=== PATIENT | male | born 1985 | race Caucasian/White ===

== ENCOUNTER 2016-12-23 07:07 | Observation (INO) | payer OTHER ==
[2016-12-23] MEDS ORDERED: NORMAL SALINE 1000 ML 1,000 ML IV ONE (07:37)
--- NOTE | 2016-12-23 07:37 | ER Document Report ---
ED GI/ - General Chief Complaint: Abdominal Pain Stated Complaint: ABDOMINAL PAIN Time Seen by Provider: 12/23/16 07:28 Mode of Arrival: Ambulatory Information source: Patient Notes: Right lower quadrant abdominal pain since . It is progressively gotten worse and unable to stand up straight due to the pain. He still has his appendix. He drank some alcohol last night but he did not think this was associated. There is no flank pain or testicle pain. TRAVEL OUTSIDE OF THE [place] IN LAST 30 DAYS: No - Related Data Allergies/Adverse Reactions: No Known Allergies Allergy (Unverified 12/23/16 07:19) Home Medications: Current Home Medications No Home Medications 12/23/16 [History] Past Medical History - General Information source: Patient - Social History Smoking Status: Current Every Day Smoker Frequency of alcohol use: 3-4 times a week Drug Abuse: None Lives with: Alone Family History: Reviewed & Not Pertinent Patient has suicidal ideation: No Patient has homicidal ideation: No - Medical History Medical History: Negative Renal/ Medical History: Denies: Hx Peritoneal Dialysis Surgical Hx: Negative Review of Systems - Review of Systems Constitutional: No symptoms reported EENT: No symptoms reported Cardiovascular: No symptoms reported Respiratory: No symptoms reported Gastrointestinal: See HPI Genitourinary: No symptoms reported Male Genitourinary: No symptoms reported Musculoskeletal: No symptoms reported Skin: No symptoms reported Hematologic/Lymphatic: No symptoms reported Neurological/Psychological: No symptoms reported Physical Exam - Vital signs Vitals: Temp Pulse Resp BP Pulse Ox 99.3 F 105 H 18 119/72 98 12/23/16 07:18 12/23/16 07:18 12/23/16 07:18 12/23/16 07:18 12/23/16 07:18 Interpretation: Normal - General General appearance: Appears well, Alert - HEENT Head: Normocephalic, Atraumatic Eyes: Normal Conjunctiva: Normal Pupils: PERRL Mucous membranes: Normal Pharynx: Normal Neck: Supple. No: Lymphadenopathy - Respiratory Respiratory status: No respiratory distress Chest status: Nontender Breath sounds: Normal Chest palpation: Normal - Cardiovascular Rhythm: Regular Heart sounds: Normal auscultation Murmur: No - Abdominal Inspection: Normal Distension: No distension Bowel sounds: Normal Tenderness: Tender, McBurney's point - Point tender Organomegaly: No organomegaly. No: Hepatomegaly, Splenomegaly - Back Back: Normal, Nontender. No: CVA tenderness - Extremities General upper extremity: Normal inspection, Nontender, Normal color, Normal ROM , Normal temperature General lower extremity: Normal inspection, Nontender, Normal color, Normal ROM , Normal temperature, Normal weight bearing. No: Nandini's sign - Neurological Neuro grossly intact: Yes Cognition: Normal Orientation: AAOx4 [place] Coma Scale Eye Opening: Spontaneous [place] Coma Scale Verbal: Oriented [place] Coma Scale Motor: Obeys Commands [place] Coma Scale Total: 15 Speech: Normal Motor strength normal: LUE, RUE, LLE, RLE Sensory: Normal - Psychological Associated symptoms: Normal affect, Normal mood - Skin Skin Temperature: Warm Skin Moisture: Dry Skin Color: Normal Skin irregularity: negative: Rash Course - Re-evaluation Re-evalutation: 12/23/16 08:[address] Silva is to see the patient his white count is 14.4 with a left shift. Temperature 99.3. He was point tender at McBurney's I do not feel that he needs a CT scan to sit highly suspect appendicitis and Dr. Obrien will come and see the patient. 12/23/16 08:22 Dr. Obrien believes he is appendicitis but wants me to add a urine drug screen because the patient admitted to him that he Adderall and methadone a few days ago in [place]. 12/23/16 09:05 Patient has multiple concerns about going to surgery and Dr. Obrien will call me back patient is not signed the consent. He is still most tender at McBurney' s point. Pt wants to know if he is going to be intubated, could there be a possibility of this not being appendicitis. I discussed CT option with pt. if he wanted to know for sure, antibiotics, but warned him of the risks of rupture appendix etc. 12/23/16 09:37 Patient has decided to the surgery so he signed his consent form. - Vital Signs Vital signs: Temp Pulse Resp BP Pulse Ox 99.3 F 112 H 20 119/72 98 12/23/16 07:19 12/23/16 07:19 12/23/16 07:25 12/23/16 07:19 12/23/16 07:19 - Laboratory Result Diagrams: 12/23/16 07:45 12/23/16 07:45 Laboratory results interpreted by me: 12/23/16 07:45 WBC 14.4 H Seg Neutrophils % 84.9 H Lymphocytes % 6.8 L Absolute Neutrophils 12.2 H Discharge - Discharge Clinical Impression: Acute abdominal pain in right lower quadrant Condition: Stable Disposition: ADMITTED INPATIENT Admitting Provider: Surgicalist Unit Admitted: OR
[2016-12-23] MEDS ORDERED: ONDANSETRON HCL INJ/PF 4 MG/2 ML SDV ONE (07:59)
[2016-12-23] MEDS ORDERED: ROCURONIUM BROMIDE INJ 50 MG/5 ML VIAL IV ONE (07:59)
[2016-12-23] MEDS ORDERED: GLYCOPYRROLATE INJ 0.4 MG/2 ML VIAL ONE (07:59)
[2016-12-23] MEDS ORDERED: LIDOCAINE 2% INJ-PF (20 MG/ML) 10 ML AMPUL ONE (07:59)
[2016-12-23] MEDS ORDERED: SUCCINYLCHOLINE CHLORIDE INJ 200 MG/10 ML VIAL ONE (07:59)
[2016-12-23] MEDS ORDERED: DEXAMETHASONE SOD PHOSPHATE INJ 4 MG/1 ML VIAL ONE (07:59)
[2016-12-23] MEDS ORDERED: METOCLOPRAMIDE HCL INJ/PF 10 MG/2 ML SDV ONE (07:59)
[2016-12-23 08:01] LABS: ABSOLUTE MONOCYTES (AUTO) 1.1 10^3/uL (0.1-1.4); ABSOLUTE NEUT (AUTO) 12.2 10^3/uL (1.7-8.2); BASOPHILS % (AUTO) 0.3 % (0-2); EOSINOPHILS % (AUTO) 0.2 % (0-6); HEMATOCRIT 42.9 % (37.9-51.0); HEMOGLOBIN 14.9 g/dL (13.5-17.0); HGB HCT DIFFERENCE 1.8; LYMPHOCYTES % (AUTO) 6.8 % (13-45); MEAN CORPUSCULAR HEMOGLOBIN 31.3 pg (27.0-33.4); MEAN CORPUSCULAR HGB CONC 34.7 g/dL (32.0-36.0); MEAN CORPUSCULAR VOLUME 90 fl (80-97); MONOCYTES % (AUTO) 7.8 % (3-13); RED BLOOD COUNT 4.77 10^6/uL (4.35-5.55); RED CELL DISTRIBUTION WIDTH 13.1 % (11.5-14.0); SEGMENTED NEUTROPHILS % (AUTO) 84.9 % (42-78); WHITE BLOOD COUNT 14.4 10^3/uL (4.0-10.5)
[2016-12-23] MEDS ORDERED: MORPHINE SULFATE 10 MG/ML INJ IV ONE (08:21)
[2016-12-23] MEDS ORDERED: ONDANSETRON HCL INJ/PF 4 MG/2 ML SDV IV ONE (08:22)
[2016-12-23 08:26] LABS: ALANINE AMINOTRANSFERASE 35 U/L (21-72); ALBUMIN 4.8 g/dL (3.5-5.0); ALKALINE PHOSPHATASE 88 U/L (38-126); ANION GAP 14 (5-19); ASPARTATE AMINO TRANSFERASE 20 U/L (17-59); BILIRUBIN,DIRECT 0.4 mg/dL (0.0-0.4); BLOOD UREA NITROGEN 13 mg/dL (7-20); CALCIUM 9.6 mg/dL (8.4-10.2); CARBON DIOXIDE 25 mmol/L (22-30); CHLORIDE 102 mmol/L (98-107); CREATININE RESULT 0.89 mg/dL (0.52-1.25); GLUCOSE 102 mg/dL (75-110); LIPASE 79.5 U/L (23-300); POTASSIUM 3.9 mmol/L (3.6-5.0); SODIUM 141.2 mmol/L (137-145)
[2016-12-23] MEDS ORDERED: DEXTROSE 5%-LACTATED RINGERS 1,000 ML IV PRN (08:40)
--- NOTE | 2016-12-23 08:51 | PDOC H&P ---
History of Present Illness Patient complains of: Abdominal pain History of Present Illness: ALEXANDRA JANE is a 31 year old male who was brought to [facility] emergency department complaining of acute onset abdominal pain approximately 8 PM last night. He reports he had a few drinks of alcohol yesterday then developed abdominal pain periumbilical then or to the right side. He had a few rice cakes at 3:00 this morning without symptomatic relief. He was brought by ground rescue to the ER where he was evaluated and found to have significant right lower quadrant tenderness. White blood cell count elevated to 14,000 with a left shift. The patient was felt to be suffering from acute appendicitis, surgery was consulted. 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 He states he has been doing this sort of thing for some time. Patient denies history of trauma, previous abdominal problems. Last bowel movement was yesterday, normal. Past Medical History Medical History: None Past Surgical History Past Surgical History: Reports: None Social History Smoking Status: Current Some Day Smoker Hx Recreational Drug Use: Yes - patient reports participating in medical testing Family History Parental Family History Reviewed: Yes Children Family History Reviewed: Yes Sibling(s) Family History Reviewed.: Yes Medication/Allergy Home Medications: No Home Medications 12/23/16 Allergies/Adverse Reactions: No Known Allergies Allergy (Unverified 12/23/16 07:19) Review of Systems Constitutional: ABSENT: chills, fever(s), headache(s), weight gain, weight loss Eyes: ABSENT: visual disturbances Ears: ABSENT: hearing changes Cardiovascular: ABSENT: chest pain, dyspnea on exertion, edema, orthropnea, palpitations Respiratory: ABSENT: cough, hemoptysis Gastrointestinal: PRESENT: as per HPI Genitourinary: PRESENT: other - States he cannot Pee Integumentary: ABSENT: rash, wounds Neurological: ABSENT: abnormal gait, abnormal speech, confusion, dizziness, focal weakness, syncope Psychiatric: ABSENT: anxiety, depression, homidical ideation, suicidal ideation Endocrine: ABSENT: cold intolerance, heat intolerance, polydipsia, polyuria Hematologic/Lymphatic: ABSENT: easy bleeding, easy bruising Physical Exam Vital Signs: Temp Pulse Resp BP Pulse Ox 99.3 F 112 H 20 119/72 98 12/23/16 07:19 12/23/16 07:19 12/23/16 07:25 12/23/16 07:19 12/23/16 07:19 Intake & Output 12/22/16 12/23/16 12/24/16 06:59 06:59 06:59 Intake Total 1000 Balance 1000 Weight 78.8 kg General appearance: PRESENT: mild distress Head exam: PRESENT: normocephalic Eye exam: PRESENT: EOMI Mouth exam: PRESENT: moist Respiratory exam: PRESENT: clear to auscultation bean Cardiovascular exam: PRESENT: RRR Pulses: PRESENT: normal carotid pulses, normal radial pulses GI/Abdominal exam: PRESENT: other - Right sided abdominal tenderness above McBurney's point with guarding. Gentrourinary exam: PRESENT: other - Testes descended bilaterally, penis circumcised. Neurological exam: PRESENT: oriented to time, oriented to situation Psychiatric exam: PRESENT: agitated Skin exam: PRESENT: dry Results Laboratory Results: 12/23/16 07:45 12/23/16 07:45 12/23/16 12/23/16 07:45 07:45 WBC 14.4 H RBC 4.77 Hgb 14.9 Hct 42.9 MCV 90 MCH 31.3 MCHC 34.7 RDW 13.1 Plt Count 207 Seg Neutrophils % 84.9 H Lymphocytes % 6.8 L Monocytes % 7.8 Eosinophils % 0.2 Basophils % 0.3 Absolute Neutrophils 12.2 H Absolute Lymphocytes 1.0 Absolute Monocytes 1.1 Absolute Eosinophils 0.0 Absolute Basophils 0.0 Sodium 141.2 Potassium 3.9 Chloride 102 Carbon Dioxide 25 Anion Gap 14 BUN 13 Creatinine 0.89 Est GFR ( Amer) > 60 Est GFR (Non-Af Amer) > 60 Glucose 102 Calcium 9.6 Total Bilirubin 1.0 AST 20 ALT 35 Alkaline Phosphatase 88 Total Protein 8.0 Albumin 4.8 Lipase 79.5 Assessment & Plan - Diagnosis (1) Acute abdominal pain in right lower quadrant Is this a current diagnosis for this admission?: YesPlan: 1. Patient's history, clinical examination, and laboratory findings are consistent with acute appendicitis. Was explained to the patient. I have recommended interval laparoscopic, possible open appendectomy. Patient appears very apprehensive. We will start IV fluids, IV antibiotics, and the plan again with the patient in the near future. (2) Substance use disorder Is this a current diagnosis for this admission?: YesPlan: 1. The patient's self-reported history of Adderall and methadone use is confusing. We will seek to extract additional history, as well as check his urine toxicology screen - Time Time Spent: 30 to 50 Minutes Critical Time spent with patient: Less than 15 minutes Medications reviewed and adjusted accordingly: Yes Anticipated discharge: Home - Inpatient Certification Based on my medical assessment, after consideration of the patient's comorbidities, presenting symptoms, or acuity I expect that the services needed warrant INPATIENT care.: Yes I certify that my determination is in accordance with my understanding of Medicare's requirements for reasonable and necessary INPATIENT services [42 CFR 412.3e].: Yes Medical Necessity: Need For IV Fluids, Need for Pain Control, Need for IV Antibiotics, Need for Surgery
[2016-12-23] MEDS ORDERED: ERTAPENEM SODIUM 1 GM in NORMAL SALINE 50 ML IV SCH (10:00)
[2016-12-23 10:10] LABS: APPEARANCE,URINE CLEAR; BILIRUBIN,URINE NEGATIVE (NEGATIVE); GLUCOSE, URINE NEGATIVE (NEGATIVE); KETONES,URINE NEGATIVE (NEGATIVE); LEUKOCYTE ESTERASE,URINE NEGATIVE (NEGATIVE); NITRITE,URINE NEGATIVE (NEGATIVE); PROTEIN,URINE NEGATIVE (NEGATIVE); URINE SPECIFIC GRAVITY 1.008; UROBILINOGEN,URINE NEGATIVE mg/dL (<2.0)
[2016-12-23 10:27] LABS: URINE BARBITURATES SCREEN NEGATIVE; URINE METHADONE SCREEN NEGATIVE; URINE OPIATES LOW UNCONFIRMED POSITIVE; URINE PHENCYCLIDINE SCREEN NEGATIVE
[2016-12-23] MEDS ORDERED: BUPIVACAINE HCL 0.25 % INJ/PF (2.5 MG/1 ML) 30 ML VIAL ONE (12:28)
[2016-12-23] MEDS ORDERED: HYDROMORPHONE HCL INJ/PF 2 MG/ML AMPULE ONE (12:32)
[2016-12-23] MEDS ORDERED: MIDAZOLAM 2 MG/2 ML INJ ONE (12:32)
[2016-12-23] MEDS ORDERED: EPHEDRINE SULFATE INJ 50 MG/1 ML AMPULE ONE (12:33)
[2016-12-23] MEDS ORDERED: PROPOFOL INJ 200 MG/20 ML VIAL IV ONE (12:33)
[2016-12-23] MEDS ORDERED: FENTANYL CITRATE INJ/PF 100 MCG/2 ML AMPUL ONE (12:33)
[2016-12-23] MEDS ORDERED: IBUPROFEN INJ 800 MG/8 ML VIAL IV ONE (12:33)
[2016-12-23] MEDS ORDERED: MEPERIDINE HCL/PF INJ 25 MG/1 ML DISP.SYRIN IV PRN (13:17)
[2016-12-23] MEDS ORDERED: FENTANYL CITRATE INJ/PF 100 MCG/2 ML AMPUL IV PRN ×3 (13:17)
[2016-12-23] MEDS ORDERED: OXYCODONE-ACETAMINOPHEN 5-325 MG TABLET PO PRN ×2 (13:17)
[2016-12-23] MEDS ORDERED: MORPHINE SULFATE 10 MG/ML INJ IV PRN ×2 (13:17→13:46)
[2016-12-23] MEDS ORDERED: PROMETHAZINE HCL INJ 25 MG/1 ML VIAL IV PRN ×2 (13:17)
[2016-12-23] MEDS ORDERED: DIPHENHYDRAMINE HCL 50 MG/ML VIAL IV PRN (13:17)
[2016-12-23] MEDS ORDERED: ONDANSETRON HCL INJ/PF 4 MG/2 ML SDV IV PRN ×2 (13:17→13:46)
--- NOTE | 2016-12-23 13:45 | Operative Report ---
Operative Report DATE OF SURGERY: 12/23/16 PREOPERATIVE DIAGNOSIS: Acute appendicitis POSTOPERATIVE DIAGNOSIS: Acute appendicitis OPERATION: Laparoscopic appendectomy SURGEON: LYNN TUTTLE ANESTHESIA: GA TISSUE REMOVED OR ALTERED: One appendix COMPLICATIONS: None ESTIMATED BLOOD LOSS: 10 mL INTRAOPERATIVE FINDINGS: See below PROCEDURE: The patient was taken to the main operating room and [facility] general anesthesia was induced. Patient had voided prior to coming to the operating room. He was exposed the arms were abducted and the abdomen was prepped and draped in a sterile fashion. Surgical plan and surgical timeout were conducted A supraumbilical curvilinear incision made with a knife and a hemostat used to enter the peritoneal cavity. The port was placed into the peritoneal cavity and pneumoperitoneum established with carbon dioxide. Under Direct visualization 2 additional ports were placed one supraumbilical 5 mm port and a left lower quadrant 12 mm port. Intraperitoneal findings were consistent with acute appendicitis. There was no evidence of Sam or perforation or soilage. The appendiceal reflection was divided with scissors so the cecum could be rotated medially. The mesoappendix was taken down and go firing of the echelon Ethicon blue load 35 mm stapler, then the appendix was amputated at its base with a second firing of the same stapler. Hemostasis was achieved with Hemoclip and Surgicel from the staple line. The appendix was placed in an Endobag and brought out of the pelvis into the left lower quadrant port site incision. We checked for bleeding and there was none. Sponge and needle counts correct. Removed under direct visualization wounds closed with 0 Vicryl 3-0 Vicryl benzoin and Steri-Strips. Patient tolerated the procedure well, extubated and taken to recovery room in stable condition.
[2016-12-24 08:25] VITALS: BP 140/88
[2016-12-24] MEDS ORDERED: HYDROCODONE/ACETAMINOPHEN 5-325 MG TABLET PO PRN (09:42)
--- NOTE | 2016-12-25 03:13 | DISCHARGE SUMMARY E ---
Discharge Summary NAME: ALEXANDRA JANE : 1985 AGE: 31Y ADMITTED: 12/23/2016 DISCHARGED: 12/24/2016 REASON FOR ADMISSION: Abdominal pain. HISTORY OF PRESENT ILLNESS: The patient is a 31-year-old male, who presents with acute onset of lower abdominal pain, started the day prior to admission. The patient had continued pain and was then brought to the emergency room. He was found to have a white count of 14,000. Based on the clinical exam and laboratory values, the patient had clinical appendicitis. PRINCIPAL DIAGNOSIS: Acute appendicitis. OTHER MEDICAL PROBLEMS: None. PROCEDURES: The patient underwent laparoscopic appendectomy on 12/23/2016. HOSPITAL COURSE: The patient was admitted to the hospital and underwent the above procedure. He has tolerated the procedure without problems and has been transferred to the floor. He was started on liquid diet and advanced to regular the next day, which he tolerated. His abdominal incisions remain clean and dry without any evidence of infection. He was not requiring any pain medication at this time. He was then discharged home. DISCHARGE PROGRAM: The patient will be discharged to home. Follow up in surgical clinic in 7 to 10 days. Regular diet. Ambulate with no lifting over 15 pounds for 2 weeks. May shower in a.m. DISCHARGE MEDICATION: Chromo 5/325 mg 1 tab p.o. q. 4 hours p.r.n. pain. DICTATING PHYSICIAN: WALKER GARCIA M.D. [id number] PHY#: [id number] ID: [id number] JOB#: [id number] ACCT: [id number] cc:Mariah LOVE MD, M.D. NANCY MELLING, F.NFátimaP. >
== END 2016-12-24 10:51 | disposition home or self-care (01) ==
LOC: ER 07:07 → EH 08:39 → UNDOADMOB 08:54 → 2S 14:48 → UNDODISOB 21:53
PROC: 0DTJ4ZZ Resection of Appendix, Percutaneous Endoscopic Approach (ICD-10-PCS; principal; 2016-12-23 13:00)
DX: K35.3 Acute appendicitis with localized peritonitis (principal); F17.200 Nicotine dependence, unspecified, uncomplicated; F11.90 Opioid use, unspecified, uncomplicated
CPT/HCPCS: 99285; 96375; 96365; 36415; 83690; 85025; 80053; 81001; 80307; 88304 ×2; 44970; G0378 ×3; J2250; J3490 ×2; J1100; J3010; J1335; J2765; J2270; J1170; J0330; J2405; J7030; J2704; J1741; 840